=== PATIENT | male | born 1960 | race Caucasian/White ===

== ENCOUNTER 2023-07-10 08:04 | Inpatient (IN) ==
--- NOTE | 2023-06-07 13:06 | PAT Medication Instructions ---
Medication Instructions Date of Service June 07, 2023 Home Medications Ultrabeet 1 dose PO QAM ascorbic acid (vitamin C) 500 mg tablet (Vitamin C) 500 mg PO BID calcium carbonate 600 mg-vitamin D3 10 mcg (400 unit) tablet (Calcium 600 + D(3)) 2 tab PO QAM cyanocobalamin (vitamin B-12) 1,000 mcg/mL injection kit 1,000 mcg subcut MONTHLY ferrous sulfate 325 mg (65 mg iron) tablet (Iron (ferrous sulfate)) 325 mg PO BID gabapentin 600 mg tablet 1,200 mg PO TID morphine 60 mg tablet,extended release 60 mg PO Q12H multivitamin 1 tab PO QAM olopatadine 0.2 % eye drops 1 drp ophthalmic (eye) DAILY PRN omeprazole 20 mg capsule,delayed release 20 mg PO BID oxycodone 15 mg tablet 15 mg PO Q4H PRN prazosin 2 mg capsule 2 mg PO TID temazepam 15 mg capsule 15 mg PO HS venlafaxine 37.5 mg tablet 37.5 mg PO QAM vitamin B complex 1 tab PO QAM Continue as directed olopatadine 0.2 % eye drops 1 drp ophthalmic (eye) DAILY PRN(if needed) STOP taking 2 weeks before surgery (or as soon as possible if surgery is within 2 weeks) Ultrabeet 1 dose PO QAM DO NOT take the morning of surgery ascorbic acid (vitamin C) 500 mg tablet (Vitamin C) 500 mg PO BID calcium carbonate 600 mg-vitamin D3 10 mcg (400 unit) tablet (Calcium 600 + D(3)) 2 tab PO QAM cyanocobalamin (vitamin B-12) 1,000 mcg/mL injection kit 1,000 mcg subcut MONTHLY ferrous sulfate 325 mg (65 mg iron) tablet (Iron (ferrous sulfate)) 325 mg PO BID multivitamin 1 tab PO QAM vitamin B complex 1 tab PO QAM Take morning of surgery With a small sip of water, OTHERWISE NOTHING TO EAT OR DRINK AFTER MIDNIGHT: gabapentin 600 mg tablet 1,200 mg PO TID morphine 60 mg tablet,extended release 60 mg PO Q12H omeprazole 20 mg capsule,delayed release 20 mg PO BID oxycodone 15 mg tablet 15 mg PO Q4H PRN prazosin 2 mg capsule 2 mg PO TID venlafaxine 37.5 mg tablet 37.5 mg PO QAM Take evening before surgery ascorbic acid (vitamin C) 500 mg tablet (Vitamin C) 500 mg PO BID ferrous sulfate 325 mg (65 mg iron) tablet (Iron (ferrous sulfate)) 325 mg PO BID gabapentin 600 mg tablet 1,200 mg PO TID morphine 60 mg tablet,extended release 60 mg PO Q12H omeprazole 20 mg capsule,delayed release 20 mg PO BID oxycodone 15 mg tablet 15 mg PO Q4H PRN(if needed) prazosin 2 mg capsule 2 mg PO TID temazepam 15 mg capsule 15 mg PO HS Other Notes If you have any questions please call us at [phone] or [phone] or [phone] or [phone]
--- NOTE | 2023-06-12 11:14 | Anesthesiology Consultation ---
Date of Service June 12, 2023 Assessment & Plan (1) Encounter for pre-operative examination: Infectious disease screening: Per assessment on 06/12/23: No known infectious disease contacts or current infectious disease symptoms. No noted Covid positive test result in past 90 days. Chart Review Chart Review: Acceptable Risk for Surgery and Patient seen in Pre Admission Testing Teaching & Discussion Pre-Anesthesia Teaching/Discussion Notes: Instructed NPO after midnight before surgery,except medications with 15 cc of water. Medication instructions provided according to the PAT guidelines. History Surgery Operation Date: 07/10/23 10:05 Proposed Procedures p Removal Hardware L3-L5, Decompression L1-L3 and L5-S1, Fusion T12-S1 Spinal Cord Monitoring - Benito Guerrero, Height/Weight Height: 5 ft 8 in Weight: 77.8 kg Allergies Allergy/AdvReac Type Severity Reaction Status Date / Time No Known Allergies Allergy Mild NONE Verified 06/07/23 11:17 Medications Home Medications Medication Instructions Recorded Confirmed Last Taken Ultrabeet 1 dose PO QAM 06/07/23 06/07/23 Unknown ascorbic acid (vitamin C) 500 mg 500 mg PO BID 06/07/23 06/07/23 Unknown tablet (Vitamin C) calcium carbonate 600 mg-vitamin 2 tab PO QAM 06/07/23 06/07/23 Unknown D3 10 mcg (400 unit) tablet (Calcium 600 + D(3)) cyanocobalamin (vitamin B-12) 1,000 mcg subcut MONTHLY 06/07/23 06/07/23 Unknown 1,000 mcg/mL injection kit ferrous sulfate 325 mg (65 mg 325 mg PO BID 06/07/23 06/07/23 Unknown iron) tablet (Iron (ferrous sulfate)) gabapentin 600 mg tablet 1,200 mg PO TID 06/07/23 06/07/23 Unknown morphine 60 mg tablet,extended 60 mg PO Q12H 06/07/23 06/07/23 Unknown release multivitamin 1 tab PO QAM 06/07/23 06/07/23 Unknown olopatadine 0.2 % eye drops 1 drp ophthalmic (eye) DAILY PRN 06/07/23 06/07/23 Unknown Dry Eye(S) omeprazole 20 mg capsule,delayed 20 mg PO BID 06/07/23 06/07/23 Unknown release oxycodone 15 mg tablet 15 mg PO Q4H PRN Pain 06/07/23 06/07/23 Unknown prazosin 2 mg capsule 2 mg PO TID 06/07/23 06/07/23 Unknown temazepam 15 mg capsule 15 mg PO HS 06/07/23 06/07/23 Unknown venlafaxine 37.5 mg tablet 37.5 mg PO QAM 06/07/23 06/07/23 Unknown vitamin B complex 1 tab PO QAM 06/07/23 06/07/23 Unknown Past Medical History Medical History Chronic back pain GERD (gastroesophageal reflux disease) Depression Hearing deficit History of kidney stones Exercise / Class Metabolic Activity II 4-5 Yardwork/Stairs/Walk up hill Past Family History Family History Other Family history not known due to adoption Past Surgical History Surgical History History of ERCP History of vasectomy History of lumbar spinal fusion x2 History of carpal tunnel release of both wrists History of repair of left rotator cuff x2 History of repair of right rotator cuff x2 History of fusion of cervical spine "normal ROM" History of cholecystectomy History of gastric bypass History of tooth extraction History of tonsillectomy and adenoidectomy Past Anesthesia History No Hx of Anesthesia Complications and No Family Hx of Anesthesia Complications History of PONV No Hx of PONV and No Hx of Motion Sickness Social History Smoking Status: Never smoker tobacco type: smokeless tobacco Do You Dip or Chew Tobacco: Yes (chews (advised on policy)) Hx Alcohol Use: No 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 Physical Exam Vital Signs VITALS BP 99/60 P 55 TEMP 98%RA SP02 98.4 RESP 18 PHYSICAL Full cervical extension range of motion. Full TMJ range of motion. TMD 3 finger breaths Mallampati Score 2 Dentition: several missing (sides/molars) Lungs: clear throughout to auscultation Cardiac: regular rate and rhythm, no murmurs noted Spine: normal Carotid arteries: negative bruit Extremities: no LE edema Short wlash Lab Results Anesthesia Preop Results Results Anesthesia Widget: WBC 6.47 K/ul (4.8-10.8) 06/12/23 Hgb 13.3 g/dl (14.0-18.0) L 06/12/23 Hct 40.3 % (42.0-52.0) L 06/12/23 Plt 148 K/uL (130-400) 06/12/23 Na 140 mmol/L (136-145) 06/12/23 K 4.9 mmol/L (3.5-5.1) 06/12/23 Cl 105 mmol/L (98-107) 06/12/23 CO2 30 mmol/L (21-32) 06/12/23 BUN 15 mg/dl (6-23) 06/12/23 Creat 0.72 mg/dl (0.6-1.4) 06/12/23 Glucose Level 95 mg/dl (70-99(Fasting)) 06/12/23 PT 11.0 Seconds (9.0-12.0) 06/12/23 PTT 26.9 Seconds (21.0-31.0) 06/12/23 INR 1.0 (0.9-1.1) 06/12/23 Urine Color Dark Yellow 06/12/23 Urine Appearance Clear (Clear) 06/12/23 Urine pH 6.5 (4.5-7.5) 06/12/23 Urine Specific [place] 1.018 (1.000-1.030) 06/12/23 Urine Protein Negative (Negative) 06/12/23 Urine Glucose (UA) Negative (Negative) 06/12/23 Urine Ketones Negative (Negative) 06/12/23 Urine Blood Negative (Negative) 06/12/23 Urine Nitrite Negative (Negative) 06/12/23 Urine Bilirubin Negative (Negative) 06/12/23 Urine Urobilinogen Negative (Negative) 06/12/23 Urine Leukocyte Esterase Negative (Negative) 06/12/23 Blood Type A Positive 06/12/23 Antibody Screen NEGATIVE 06/12/23 Testing Electrocardiogram Date: 06/12/23 SB at 49bpm. "Otherwise normal ECG" No significant change compared to 06/01/2015 per visual designer comparison. Chest X-Ray Date: 06/12/23 FINDINGS: Cardiomediastinal and hilar silhouettes are within normal limits. No pneumothorax, pleural effusion or airspace consolidation. Hyperinflation with diaphragmatic flattening. Cervical spinal fusion hardware. Cholecystectomy. Partially imaged lumbar spinal fusion hardware. Degenerative changes of the shoulders and spine. IMPRESSION: Hyperinflation without acute process of the chest.
[~2023-07-10 08:04] MED LIST: ACETAMINOPHEN 500 MG TAB PO SCH; CeleBREX 200 MG CAP PO SCH; DexMEDEtomidine HCL IV 100 MCG/ML VIAL IV ONE; GABAPENTIN 600 MG DOSE PO SCH; KETAMINE HCL 10MG/ML SYR ONE; LR 15ML/HR IV SCH; LR 60ML/HR IV SCH; PROPOFOL IV EMULSION 10 MG/ML 100 ML VIAL IV ONE; REMIFENTANIL HCL 1 MG VIAL IV ONE
[2023-07-10] MEDS ORDERED: ROCURONIUM BROMIDE 10 MG/ML 5 ML VIAL IV ONE ×2 (09:41→11:47)
[2023-07-10] MEDS ORDERED: MIDAZOLAM HCL 1 MG/ML 2ML VIAL ONE (09:41)
[2023-07-10] MEDS ORDERED: ONDANSETRON INJ 2 MG/ML 2 ML VIAL ONE (09:41)
[2023-07-10] MEDS ORDERED: DEXAMETHASONE SOD INJ 4 MG/ML VIAL ONE (09:41)
[2023-07-10] MEDS ORDERED: LIDOCAINE 2% 2 ML VIAL/AMP(20MG/ML) INFIL ONE (09:41)
[2023-07-10] MEDS ORDERED: PROPOFOL IV EMULSION 10 MG/ML 20 ML VIAL IV ONE (09:41)
[2023-07-10] MEDS ORDERED: fentaNYL citrate PF 100 MCG/2 ML VIAL ONE (09:41)
[2023-07-10] MEDS ORDERED: ePHEDrine sulfate 50 MG/ML AMP IV PRN (09:47)
[2023-07-10] MEDS ORDERED: ATROPINE SULFATE 0.1 MG/ML 10ML SYR IV PRN (09:47)
[2023-07-10] MEDS ORDERED: ONDANSETRON INJ 2 MG/ML 2 ML VIAL IV PRN ×2 (09:47→15:21)
[2023-07-10] MEDS ORDERED: HYDROmorphone INJ 2 MG/ML SYR/VIAL IV PRN (09:47)
[2023-07-10] MEDS ORDERED: SUGAMMADEX SODIUM 200 MG/2 ML VIAL IV ONE (10:14)
--- NOTE | 2023-07-10 10:31 | History & Physical Bridge Note ---
Date of Service July 10, 2023 History & Physical Bridge Note I have examined the patient, reviewed the History & Physical and in the interval since the performance of the History & Physical I have noted the following changes of clinical significance: no changes noted
--- NOTE | 2023-07-10 10:32 | History & Physical Report ---
Date of Service July 10, 2023 Assessment & Plan (1) Lumbar stenosis with neurogenic claudication: Plan: Removal of hardware at L3-L5, L2-L3 and L5-S1 decompression, T12-S1 fusion History of Present Illness Chief Complaint: Back and bilateral leg pain Primary Care Provider: Mango Rahman This is a 63-year-old male well-known to me the presents with chronic persistent back and leg pain after failing course of nonoperative care is here for surgical invention. Allergies Allergy/AdvReac Type Severity Reaction Status Date / Time No Known Allergies Allergy Mild NONE Verified 07/10/23 08:47 Home Medications Medication Instructions Recorded Confirmed Type Ultrabeet 1 dose PO QAM 06/07/23 07/10/23 History ascorbic acid (vitamin C) 500 mg 500 mg PO BID 06/07/23 07/10/23 History tablet (Vitamin C) calcium carbonate 600 mg-vitamin 2 tab PO QAM 06/07/23 07/10/23 History D3 10 mcg (400 unit) tablet (Calcium 600 + D(3)) cyanocobalamin (vitamin B-12) 1,000 mcg subcut MONTHLY 06/07/23 07/10/23 History 1,000 mcg/mL injection kit ferrous sulfate 325 mg (65 mg 325 mg PO BID 06/07/23 07/10/23 History iron) tablet (Iron (ferrous sulfate)) gabapentin 600 mg tablet 1,200 mg PO TID 06/07/23 07/10/23 History morphine 60 mg tablet,extended 60 mg PO Q12H 06/07/23 07/10/23 History release multivitamin 1 tab PO QAM 06/07/23 07/10/23 History olopatadine 0.2 % eye drops 1 drp ophthalmic (eye) DAILY PRN 06/07/23 07/10/23 History Dry Eye(S) omeprazole 20 mg capsule,delayed 20 mg PO BID 06/07/23 07/10/23 History release oxycodone 15 mg tablet 15 mg PO Q4H PRN Pain 06/07/23 07/10/23 History prazosin 2 mg capsule 2 mg PO TID 06/07/23 07/10/23 History temazepam 15 mg capsule 15 mg PO HS 06/07/23 07/10/23 History venlafaxine 37.5 mg tablet 37.5 mg PO QAM 06/07/23 07/10/23 History vitamin B complex 1 tab PO QAM 06/07/23 07/10/23 History Past Med/Surg History Medical History Chronic back pain GERD (gastroesophageal reflux disease) Depression Hearing deficit History of kidney stones Surgical History History of ERCP History of vasectomy History of lumbar spinal fusion x2 History of carpal tunnel release of both wrists History of repair of left rotator cuff x2 History of repair of right rotator cuff x2 History of fusion of cervical spine "normal ROM" History of cholecystectomy History of gastric bypass History of tooth extraction History of tonsillectomy and adenoidectomy Family History Other Family history not known due to adoption Social History Smoking Status: Never smoker Tobacco Type: Smokeless Tobacco (Dip or Chew) Second Hand Exposure: Yes (work environment); Do You Dip or Chew Tobacco: Yes (chews (advised on policy)); Tobacco Cessation Education Requested by Patient: No Hx Alcohol Use: No 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) Preferred Language: Greek Communication Ability: Effective Baseball Coach Required: No Beliefs That Will Affect Care: None Current Living Situation: Spouse and Family Current Living Situation Comment: Lives with and daughter and son Other Information That Helps Us Care for You: No Feels Safe at Home: Yes Safety Concerns: Feels Safe At This Time Assistive Devices: Contacts and Glasses Physical Exam Physical Exam: Patient is alert and oriented Heart regular rhythm Lungs clear Results & Data Results & Data Vital Signs (Past 12 Hours) Vital Signs Temp Pulse Resp BP Pulse Ox O2 Del Method 07/10/23 08:45 36.6 C 53 L 20 116/67 94 Room Air
[2023-07-10] MEDS ORDERED: ceFAZolin 330 MG/ML 1 GM VIAL ONE (10:50)
[2023-07-10] MEDS ORDERED: BUPIVACAINE/EPINEPHRINE 0.25% 1:200,000 30 ML VIAL ONE (10:50)
[2023-07-10] MEDS ORDERED: FLOSEAL HEMOSTATIC MATRIX 10ML TOP ONE (11:45)
[2023-07-10] MEDS ORDERED: ePHEDrine sulfate 50 MG/ML AMP ONE (11:47)
[2023-07-10] MEDS ORDERED: NEOSTIGMINE METHYLSULFATE 1 MG/ML 10ML VIAL ONE (13:55)
[2023-07-10] MEDS ORDERED: GLYCOPYRROLATE 0.2 MG/ML VIAL ONE ×2 (13:55→13:57)
[2023-07-10] MEDS ORDERED: HYDROmorphone INJ 2 MG/ML SYR/VIAL ONE (14:01)
--- NOTE | 2023-07-10 14:06 | Operative Report ---
Post Operative Report Pre & Post Diagnosis Operation Date: 07/10/23 10:05 Pre-Op Diagnosis: Spinal Stenosis Lumbar Region with Radiculopathy Post-Op Diagnosis: Spinal Stenosis Lumbar Region with Radiculopathy I identified the patient and participated in the time-out.: Yes Procedure Operation Date: 07/10/23 10:05 Actual Procedures #1 removal of posterior instrumentation L3-L4. #2 exploration of fusion L3-L4. #3 lumbar decompression bilaterally facetectomies and foraminotomies L1-L2 L2-L3 and L5-S1. #4 posterior spinal fusion T12-L3 and L5-S1. #5 posterior instrumentation T12-S1. #6 interbody fusion L2-L3 L5-S1 #7 placement of 10 x 26 mm Spira cage at L2-L3 and 14 x 26 mm Spira cage at L5-S1 x2. #8 placement locally harvested morselized autograft and posterior gutters. #9 placement I factor interbody space and infuse collagen sponge, and master graft in the posterior lateral gutters. Surgeon Benito Guerrero, At Home Independent Call [facility] Agent Carol Patino Estimated Blood Loss 300 Findings Consistent with Post-Op Diagnosis Specimens None Indications This is a 63-year-old male well-known to me presents above-mentioned diagnosis after failing course of nonoperative care is here for surgical invention. Description of Procedure Patient was met with identified informed consent obtained. Patient was then taken to the operative suite underwent patient placed in a prone position on the [facility] top Joo frame. All bony prominences well-padded eyes inspected to ensure no external pressure placed upon the. This point the thoracolumbar spine was prepped and draped in a sterile fashion. Sharp dissection with the assistance of Bovie cautery to form down to and exposing the lamina transverse processes of T12 L1-L2 instrumentation L3-L4 and the transverse processes of L5 and the sacral ala bilaterally. I then proceeded move the hardware bilaterally explore the fusion mass noting it being mature and intact. And then performed a complete laminectomy of L5 including bilaterally facetectomies and foraminotomies addressing severe spinal stenosis. This was followed by complete laminectomy of L2 partial laminectomy of L1 including bilateral medial facetectomies and foraminotomies addressing severe spinal stenosis. Pedicle screws then placed in T12-L1 L2-L3-L4 and S1 levels bilaterally with assistance of fluoroscopy and the proper sized albert contoured and placed. By way the transforaminal approach on the left discectomy of L5-S1 was performed endplates curetted to subcortical bleeding bone and a 14 x 26 mm Spira cage with I factor tapped in position. Then proceeded to the right transforaminal region at L5-S1. Completed the discectomy curetted the endplates to subcortical bleeding bone and placed a second 14 x 26 mm Spira cage with I factor into position. Then proceeded L2-L3 by way the transforaminal approach on the left complete discectomy was performed endplates guided to subcortical mean bone and a 10 x 26 mm Spira cage with I factor tapped in position. Rods were then locked into final position bilaterally. The transverse processes of T12 L1-L2-L3 L5 and the sacral ala burred to subcortically bone. Infuse bone sponge, mass graft local autograft was placed in the posterior gutters. 15 round SAMINA drain inserted. The incision was then closed with 1 Vicryl fascia 2-0 Vicryl subcutaneously and 4 Monocryl for final skin closure. Steri-Strips sterile dressing placed. Patient waken taken to PACU in stable condition. Please note spinal cord monitoring was utilized at the procedure no changes noted. Lastly Carol Patino was present at the entire surgery involved the patient positioning complex portions of the surgery and possible closure. I attest to the content of the Intraoperative Record and any orders documented therein. Any exceptions are noted below.
--- NOTE | 2023-07-10 14:35 | Fluoroscopy Report ---
FL lumbar spine 2-3V CLINICAL HISTORY: HW REMOVAL L3-L5 DECOMPRESSION L1-L3 L5-S1 FUSION T12-S1 COMPARISON STUDY: None. FLUOROSCOPY TIME: 48 seconds FLUOROSCOPY IMAGES: 4 Ka,r: 30.3 mGy FINDINGS: Posterior decompression and fusion from T12 through S1 with pedicle screws and rods. Hardwa re appears intact. Disc spacers are in place. IMPRESSION: Fluoroscopic assistance as above ACT 112: Negative or not required by law. Electronically signed by: Rogerio Yates M.D. 07/10/2023 2:34 PM
[2023-07-10] MEDS: fentaNYL citrate PF 100 MCG/2 ML VIAL IV PRN ×2 (14:38→14:43)
[2023-07-10] MEDS ORDERED: HYDROmorphone INJ 1 MG/ML SYRINGE IV PRN (15:21)
[2023-07-10] MEDS ORDERED: ACETAMINOPHEN 500 MG TAB PO PRN (15:21)
[2023-07-10] MEDS ORDERED: bisacodyL 10 MG SUPP PR PRN (15:21)
[2023-07-10] MEDS ORDERED: ACETAMINOPHEN 1,000 MG/100 ML VIAL IV PRN (15:21)
[2023-07-10] MEDS ORDERED: NALOXONE HCL 0.4 MG/1 ML VIAL/CARP IV PRN (15:21)
[2023-07-10] MEDS ORDERED: ONDANSETRON 4 MG OD TAB PO PRN (15:21)
[2023-07-10] MEDS ORDERED: DO NOT ADMINISTER PNEUMOCOCCAL VACCINE PRN (15:21)
[2023-07-10] MEDS ORDERED: FAMOTIDINE 20 MG TAB PO PRN (15:21)
[2023-07-10] MEDS ORDERED: LORazepam 0.5 MG in SYRINGE 0.25 ML IV PRN (15:21)
[2023-07-10] MEDS ORDERED: METOCLOPRAMIDE HCL INJ 5 MG/ML 2 ML VIAL IV PRN (15:21)
[2023-07-10] MEDS ORDERED: OLOPATADINE 0.2% OP PRN (15:21)
[2023-07-10] MEDS ORDERED: diphenhydrAMINE Capsule 25 MG CAP PO PRN (15:21)
[2023-07-10] MEDS ORDERED: MAGNESIUM HYDROXIDE SUSP 30 ML UDC PO PRN (15:21)
[2023-07-10] MEDS ORDERED: hydrOXYzine HCl 25 MG TAB PO PRN (15:21)
[2023-07-10] MEDS ORDERED: ALUMINUM/MAGNESIUM SUSP 30 ML UDC PO PRN (15:21)
[2023-07-10] MEDS ORDERED: HYDROmorphone INJ 0.5 MG/0.5 ML SYR IV PRN (15:21)
[2023-07-10] MEDS ORDERED: PROMETHAZINE HCL 12.5 MG in SODIUM CHLORIDE 0.9% 50 ML IV PRN (15:21)
[2023-07-10] MEDS ORDERED: LORazepam 0.5 MG TAB PO PRN (15:21)
[2023-07-10] MEDS ORDERED: DO NOT ADMINISTER FLU VACCINE PRN (15:21)
[2023-07-10] MEDS ORDERED: SOD PHOSPHATE/SOD BIPHOSPHATE ENEMA 132 ML BTL PR PRN (15:21)
--- NOTE | 2023-07-10 15:43 | Anesthesiology Progress Note ---
Date of Service July 10, 2023 Anesthesia Post Procedure Vital Signs Vital Signs: Temp Pulse Pulse Resp BP BP Pulse Ox 07/10/23 15:20 36.4 C L 54 L 16 101/60 93 07/10/23 15:15 61 20 101/56 L 94 07/10/23 15:05 36.6 C 60 12 104/63 94 07/10/23 14:55 63 12 110/63 95 07/10/23 14:45 62 12 116/69 98 07/10/23 14:35 72 16 103/66 99 07/10/23 14:27 36.1 C L 76 14 120/75 98 07/10/23 08:45 36.6 C 53 L 20 116/67 94 O2 Del Method O2 Flow Rate 07/10/23 15:20 Room Air 07/10/23 15:15 Room Air 07/10/23 15:05 Room Air 07/10/23 14:55 Room Air 07/10/23 14:45 Oxymask 4 07/10/23 14:35 Oxymask 6 07/10/23 14:27 Oxymask 6 07/10/23 08:45 Room Air Pain Intensity Bilateral Back: Pain Intensity: 8 Transfer of Care Handoff Completed per policy Notes Mental Status: alert / awake / arousable Patient Amnestic to Procedure: Yes Nausea / Vomiting: adequately controlled Pain: adequately controlled Airway Patency, RR, SpO2: stable & adequate BP & HR: stable & adequate Hydration State: stable & adequate Anesthetic Complications: no major complications apparent
[2023-07-10] MEDS: LACTATED RINGER'S 1,000 ML IV SCH (15:45)
[2023-07-10] MEDS: MoRPHine SULFATE CR 60 MG TABCR PO SCH (16:23)
[2023-07-10] MEDS: KETOROLAC 30 MG/ML VIAL IV SCH ×2 (16:24→20:25)
[2023-07-10] MEDS: ASCORBIC ACID 500 MG TAB PO SCH (16:24)
[2023-07-10] MEDS: ceFAZolin 2000MG 2,000 MG/15 ML SYR IV SCH (20:25)
[2023-07-10] MEDS: PRAZOSIN HCL 1 MG CAP PO SCH (20:25)
[2023-07-10] MEDS: FERROUS SULFATE 325 MG TAB PO SCH (20:25)
[2023-07-10] MEDS: PANTOprazole 40 MG TAB PO SCH (20:25)
[2023-07-10] MEDS: GABAPENTIN 600 MG TAB PO SCH (20:25)
[2023-07-10] MEDS: DOCUSATE SODIUM/SENNA 50/8.6MG TAB PO SCH (20:25)
[2023-07-10] MEDS: TEMAZEPAM 15 MG CAPSULE PO SCH (20:25)
[2023-07-10] MEDS: oxyCODONE HCL IR 5 MG TAB (IMMEDIATE RELEASE) PO PRN (22:26)
[2023-07-11] MEDS: LACTATED RINGER'S 1,000 ML IV SCH (01:13)
[2023-07-11] MEDS: MoRPHine SULFATE CR 60 MG TABCR PO SCH ×2 (02:54→15:29)
[2023-07-11] MEDS: KETOROLAC 30 MG/ML VIAL IV SCH ×2 (02:54→09:34)
[2023-07-11] MEDS: ceFAZolin 2000MG 2,000 MG/15 ML SYR IV SCH (03:49)
[2023-07-11] MEDS: oxyCODONE HCL IR 5 MG TAB (IMMEDIATE RELEASE) PO PRN ×5 (05:54→23:49)
[2023-07-11] MEDS: POLYETHYLENE (MIRALAX) 17 GM PACK PO SCH ×4 (05:55→23:50)
[2023-07-11 06:21] LABS: Basophils # (auto) 0.03 K/uL (0.00-0.20); Basophils % (auto) 0.2 %; Eosinophils % (auto) 0.8 %; Hematocrit (blood only) 31.2 % (42.0-52.0); Hemoglobin 10.2 g/dl (14.0-18.0); Immature Granulocytes # (auto) 0.06 K/uL (0.01-0.20); Immature Granulocytes % (auto) 0.5 %; Lymphocytes # (auto) 1.67 K/uL (1.20-3.40); Lymphocytes % (auto) 13.3 %; Mean Corpuscular Hemoglobin 30.7 pg (25.0-34.0); Mean Corpuscular Hgb Conc 32.7 g/dL (32.0-36.0); Mean Platelet Volume 11.2 fL (9.4-12.4); Monocytes # (auto) 1.01 K/uL (0.11-0.59); Monocytes % (auto) 8.1 %; Neutrophils # (auto) 9.66 K/uL (1.40-6.50); Neutrophils % (auto) 77.1 %; Platelet Count 117 K/uL (130-400); RDW Coefficient of Variation 12.5 % (11.5-14.5); RDW Standard Deviation 43.4 fL (36.4-46.3); Red Blood Count 3.32 M/uL (4.70-6.10); White Blood Count 12.53 K/ul (4.8-10.8)
[2023-07-11 06:35] LABS: BUN Creatinine Ratio 23.3 (10-20); Calcium 8.1 mg/dl (8.6-10.3); Creatinine Clr Calc Pharmacy 101.5 ml/min; Est GFR (African American) 115.2 ml/min; Est GFR (Non-African American) 99.4 ml/min; Potassium 4.2 mmol/L (3.5-5.1)
[2023-07-11] MEDS: PRAZOSIN HCL 1 MG CAP PO SCH (08:06)
[2023-07-11] MEDS: VITAMIN B COMPLEX TAB PO SCH (08:08)
[2023-07-11] MEDS: CALCIUM 600MG + VIT D 400 IU TAB PO SCH (08:09)
[2023-07-11] MEDS: GABAPENTIN 600 MG TAB PO SCH ×3 (08:09→20:18)
[2023-07-11] MEDS: PANTOprazole 40 MG TAB PO SCH ×2 (08:09→20:18)
[2023-07-11] MEDS: VENLAFAXINE HCL 37.5 MG TAB PO SCH (08:09)
[2023-07-11] MEDS: FERROUS SULFATE 325 MG TAB PO SCH ×2 (08:09→20:18)
[2023-07-11] MEDS: ASCORBIC ACID 500 MG TAB PO SCH ×2 (08:09→18:26)
[2023-07-11] MEDS: dexAMETHasone 6 MG in SYRINGE 0 ML IV SCH (08:10)
--- NOTE | 2023-07-11 08:42 | Orthopedic Progress Note ---
Date of Service July 11, 2023 Assessment & Plan (1) Lumbar stenosis with neurogenic claudication: Plan: At this point we will initiate physical therapy monitor history preoperatively discharge in next few days. Admission and Anticipated Discharge Date Admission Date: July 10, 2023 Subjective Back pain controlled leg pain improved Physical Exam Physical Exam: Patient in bed appears comfortable. Discussed with resting. Results & Data Vital Signs (Past 12 Hours) Vital Signs Temp Pulse Resp BP Pulse Ox O2 Del Method 07/11/23 07:37 36 C L 62 14 97/60 L 96 Room Air 07/11/23 02:52 36.5 C 63 18 110/62 94 Room Air 07/10/23 21:30 36.7 C 59 L 18 96/59 L 95 Room Air Queries Orthopedic Spine Acute Posthemorrhagic Anemia: Yes
--- NOTE | 2023-07-11 11:16 | Hospitalist Consultation ---
Date of Consultation July 11, 2023 Assessment & Plan (1) Lumbar stenosis with neurogenic claudication: -S/P decompression L1-L3 and L5-2; Fusion T12-S1 with Dr. Guerrero on 07/11 -Pain control, bowel regiment, and DVT proh per surgery -Receiving IV Decadron x 3 days -SAMINA Drain in place -PT/OT (2) Hypertension: -Has been normotensive to hypotensive since admission -Will hold prazosin at this time and continue to monitor (3) Fatigue: -Discussed with patient more likely from 1200 gabapentin TID than his prazosin TID. -Chronic and can be further worked up in the outpatient setting, but will check a few labs with AM draw - Vit D, TSH and iron studies ordered (4) Anemia: -Suspect chronic, worsened by acute blood loss anemia from surgery -Patient takes BID ferrous sulfate -Iron studies as above, monitor hgb Plan Dispo: medically stable Continued inpatient stay, per patient Dr. Guerrero prediciting discharge to home on Saturday Thank you for allowing us to participate in the care of this patient, please reach out with any questions or concerns Supervising Physician Co-Signing Physician Notes Attending Attestation - Chart reviewed, consultation care plan d/w STEFAN Fontenot. I agree w/ the martinez components of her documentation. 63yo male who underwent lumbar decompression-fusion procedure with Dr Guerrero on 07/10/23. Agree with labs for fatigue & anemia as outlined above in Po's note. Thank you for the consult; we will follow with you. Wilmer Camp MD History of Present Illness Reason for Consultation: Medical management Attending Physician: Benito Guerrero DO History of Present Illness 1055 - Patient seen sitting up in the chair. Reports pain is well controlled, good appetite. No bowel movement yet. Bentley removed about a half hour ago and has not had to void yet. Prazosin was held this morning due to hypotension, patient denies lightheadedness or dizziness, but states that he has had that before with different BP medications. has been on the prazosin for over a year for HTN. Does report that he has been feeling tired all the time, for over a year. Has not discussed this with his PCP. Allergies Allergy/AdvReac Type Severity Reaction Status Date / Time No Known Allergies Allergy Mild NONE Verified 07/10/23 08:47 Home Medications Medication Instructions Recorded Confirmed Type Ultrabeet 1 dose PO QAM 06/07/23 07/10/23 History ascorbic acid (vitamin C) 500 mg 500 mg PO BID 06/07/23 07/10/23 History tablet (Vitamin C) calcium carbonate 600 mg-vitamin 2 tab PO QAM 06/07/23 07/10/23 History D3 10 mcg (400 unit) tablet (Calcium 600 + D(3)) cyanocobalamin (vitamin B-12) 1,000 mcg subcut MONTHLY 06/07/23 07/10/23 History 1,000 mcg/mL injection kit ferrous sulfate 325 mg (65 mg 325 mg PO BID 06/07/23 07/10/23 History iron) tablet (Iron (ferrous sulfate)) gabapentin 600 mg tablet 1,200 mg PO TID 06/07/23 07/10/23 History morphine 60 mg tablet,extended 60 mg PO Q12H 06/07/23 07/10/23 History release multivitamin 1 tab PO QAM 06/07/23 07/10/23 History olopatadine 0.2 % eye drops 1 drp ophthalmic (eye) DAILY PRN 06/07/23 07/10/23 History Dry Eye(S) omeprazole 20 mg capsule,delayed 20 mg PO BID 06/07/23 07/10/23 History release oxycodone 15 mg tablet 15 mg PO Q4H PRN Pain 06/07/23 07/10/23 History prazosin 2 mg capsule 2 mg PO TID 06/07/23 07/10/23 History temazepam 15 mg capsule 15 mg PO HS 06/07/23 07/10/23 History venlafaxine 37.5 mg tablet 37.5 mg PO QAM 06/07/23 07/10/23 History vitamin B complex 1 tab PO QAM 06/07/23 07/10/23 History Patient History Medical History Chronic back pain GERD (gastroesophageal reflux disease) Depression Hearing deficit History of kidney stones Surgical History History of ERCP History of vasectomy History of lumbar spinal fusion x2 History of carpal tunnel release of both wrists History of repair of left rotator cuff x2 History of repair of right rotator cuff x2 History of fusion of cervical spine "normal ROM" History of cholecystectomy History of gastric bypass History of tooth extraction History of tonsillectomy and adenoidectomy Family History Other Family history not known due to adoption Social History Smoking Status: Never smoker Tobacco Type: Smokeless Tobacco (Dip or Chew) Second Hand Exposure: Yes (work environment); Do You Dip or Chew Tobacco: Yes (chews (advised on policy)); Tobacco Cessation Education Requested by Patient: No Hx Alcohol Use: No 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) Preferred Language: Azerbaijani Communication Ability: Effective Jack Spooler Tender Required: No Beliefs That Will Affect Care: None Current Living Situation: Spouse and Family Current Living Situation Comment: Lives with and daughter and son Other Information That Helps Us Care for You: No Feels Safe at Home: Yes Safety Concerns: Feels Safe At This Time Assistive Devices: Walker Review of Systems Review of Systems: All systems reviewed & are unremarkable except as noted in Subjective Physical Exam Physical Exam: General: WN/WD, NAD, VS as above Resp: normal respiratory effort, lungs clear to auscultation CV: RRR, no murmur, no edema Abd: non tender, no hepatosplenomegaly Back: abd dressing in place - C/d/i Extremities: Moves all extremities, no edema, erica hose in place Neuro: A&O x3, Skin: intact, no lesions noted Results & Data Results & Data Vital Signs (Past 12 Hours) Vital Signs Temp Pulse Resp BP Pulse Ox O2 Del Method 07/11/23 07:37 36 C L 62 14 97/60 L 96 Room Air 07/11/23 02:52 36.5 C 63 18 110/62 94 Room Air Laboratory Results CBC and CMP reviewed PG Care Time/CCT Total # of Minutes Spent Total Time Spent with Patient: Total time spent is greater than 50% in coordination of care (as documented) at patient's floor/unit and/or counseling patient: Coding Level of Care Code 56406 IN/OBS CONSULT LVL 3,45M Diagnoses Lumbar stenosis with neurogenic claudication M48.062 Hypertension I10 Fatigue R53.83 Anemia D64.9
[2023-07-11] MEDS: DOCUSATE SODIUM/SENNA 50/8.6MG TAB PO SCH (20:18)
[2023-07-11] MEDS: TEMAZEPAM 15 MG CAPSULE PO SCH (20:20)
[2023-07-12] MEDS: MoRPHine SULFATE CR 60 MG TABCR PO SCH ×2 (03:15→15:06)
[2023-07-12] MEDS: oxyCODONE HCL IR 5 MG TAB (IMMEDIATE RELEASE) PO PRN ×5 (04:46→21:40)
[2023-07-12] MEDS: POLYETHYLENE (MIRALAX) 17 GM PACK PO SCH ×4 (05:45→23:35)
[2023-07-12 06:27] LABS: Hematocrit (blood only) 30.1 % (42.0-52.0); Hemoglobin 10.1 g/dl (14.0-18.0); Mean Corpuscular Hemoglobin 31.8 pg (25.0-34.0); Mean Corpuscular Hgb Conc 33.6 g/dL (32.0-36.0); Mean Corpuscular Volume 94.7 fL (80.0-100.0); Mean Platelet Volume 11.2 fL (9.4-12.4); Platelet Count 111 K/uL (130-400); RDW Coefficient of Variation 12.6 % (11.5-14.5); RDW Standard Deviation 43.9 fL (36.4-46.3); Red Blood Count 3.18 M/uL (4.70-6.10); White Blood Count 11.21 K/ul (4.8-10.8)
[2023-07-12 07:00] LABS: Thyroid Stimulating Hormone 2.379 uIu/ml (0.300-4.500)
[2023-07-12 07:06] LABS: Ferritin 1036.2 ng/ml (8-388)
[2023-07-12] MEDS: dexAMETHasone 6 MG in SYRINGE 0 ML IV SCH (07:57)
--- NOTE | 2023-07-12 09:31 | Orthopedic Progress Note ---
Date of Service July 12, 2023 Assessment & Plan (1) Lumbar stenosis with neurogenic claudication: Plan: Norma is postoperative day 2 status post hard removal L3-4, multilevel decompression and instrumented fusion from T12-S1. Will work on pain control today. Continue with aggressive bowel regimen. DVT prophylaxis is in the form teds and SCDs. Continue with ambulation. Maintain SAMINA drain. Anticipate discharge home Saturday Admission and Anticipated Discharge Date Admission Date: July 10, 2023 Joy Victor is postoperative day 2 status post hard removal L3-4, decompression L1- 3, L5-S1 instrumented fusion from T12-S1. He has a bit more back pain today. States his lower extremities are numb. No radicular pain. SAMINA drain output last shift was 180 cc. Yesterday in physical therapy ambling 250 feet. H&H this morning are 10.1 and 30.1 respectively. He is passing flatus but no bowel movement. Review of Systems Review of Systems: All systems reviewed & are unremarkable except as noted in HPI & below Physical Exam Physical Exam: He is lying in bed uncomfortable Alert and oriented x 3 Lumbar dressing is clean dry intact with functioning SAMINA drain Strength is intact bilateral lower extremities KEITH hose intact bilaterally Calf soft nontender bilaterally Results & Data Vital Signs (Past 12 Hours) Vital Signs Temp Pulse Resp BP Pulse Ox O2 Del Method 07/12/23 07:55 36.7 C 58 L 20 99/66 L 95 Room Air Queries Orthopedic Spine Acute Posthemorrhagic Anemia: Yes
[2023-07-12] MEDS: VENLAFAXINE HCL 37.5 MG TAB PO SCH (09:39)
[2023-07-12] MEDS: VITAMIN B COMPLEX TAB PO SCH (09:39)
[2023-07-12] MEDS: GABAPENTIN 600 MG TAB PO SCH ×3 (09:39→21:42)
[2023-07-12] MEDS: PANTOprazole 40 MG TAB PO SCH ×2 (09:39→21:41)
[2023-07-12] MEDS: CALCIUM 600MG + VIT D 400 IU TAB PO SCH (09:39)
[2023-07-12] MEDS: ASCORBIC ACID 500 MG TAB PO SCH ×2 (09:40→17:24)
--- NOTE | 2023-07-12 13:09 | Hospitalist Consultation ---
Date of Consultation July 12, 2023 Assessment & Plan (1) Lumbar stenosis with neurogenic claudication: -S/P decompression L1-L3 and L5-2; Fusion T12-S1 with Dr. Guerrero on 07/11 -Pain control, bowel regiment, and DVT proh per surgery -Receiving IV Decadron x 3 days -SAMINA Drain in place -PT/OT (2) Hypertension: -Has been normotensive to hypotensive since admission -continue to hold prazosin a (3) Fatigue: -Discussed with patient more likely from 1200 gabapentin TID than his prazosin TID. -Chronic and can be further worked up in the outpatient setting - Vit D and TSH WNL (4) Anemia: -Suspect chronic, worsened by acute blood loss anemia from surgery -Iron studies showing significant iron stores (ferritin 1036), suspect anemia of chronic disease. -Stop iron supplement. Can have further workup with PCP. Patient aware. Plan Dispo: medically stable Continued inpatient stay, per patient Dr. Guerrero predicating discharge to home on Saturday Thank you for allowing us to participate in the care of this patient, please reach out with any questions or concerns Supervising Physician Co-Signing Physician Notes Attending Attestation - Chart reviewed, care plan d/w STEFAN Fontenot. I agree w/ the martinez components of her documentation. Wilmer Camp MD History of Present Illness Attending Physician: Benito Guerrero, DO History of Present Illness Patient seen sitting up in the chair. Was just up to the bathroom. Pain increasing and has not had a bowel movement yet, but he is following the bowel regiment. Also reports leg down his leg, but that is chronic for him. Denies CP and SOB. Allergies Allergy/AdvReac Type Severity Reaction Status Date / Time No Known Allergies Allergy Mild NONE Verified 07/10/23 08:47 Home Medications Medication Instructions Recorded Confirmed Type Ultrabeet 1 dose PO QAM 06/07/23 07/10/23 History ascorbic acid (vitamin C) 500 mg 500 mg PO BID 06/07/23 07/10/23 History tablet (Vitamin C) calcium carbonate 600 mg-vitamin 2 tab PO QAM 06/07/23 07/10/23 History D3 10 mcg (400 unit) tablet (Calcium 600 + D(3)) cyanocobalamin (vitamin B-12) 1,000 mcg subcut MONTHLY 06/07/23 07/10/23 History 1,000 mcg/mL injection kit ferrous sulfate 325 mg (65 mg 325 mg PO BID 06/07/23 07/10/23 History iron) tablet (Iron (ferrous sulfate)) gabapentin 600 mg tablet 1,200 mg PO TID 06/07/23 07/10/23 History morphine 60 mg tablet,extended 60 mg PO Q12H 06/07/23 07/10/23 History release multivitamin 1 tab PO QAM 06/07/23 07/10/23 History olopatadine 0.2 % eye drops 1 drp ophthalmic (eye) DAILY PRN 06/07/23 07/10/23 History Dry Eye(S) omeprazole 20 mg capsule,delayed 20 mg PO BID 06/07/23 07/10/23 History release oxycodone 15 mg tablet 15 mg PO Q4H PRN Pain 06/07/23 07/10/23 History prazosin 2 mg capsule 2 mg PO TID 06/07/23 07/10/23 History temazepam 15 mg capsule 15 mg PO HS 06/07/23 07/10/23 History venlafaxine 37.5 mg tablet 37.5 mg PO QAM 06/07/23 07/10/23 History vitamin B complex 1 tab PO QAM 06/07/23 07/10/23 History Patient History Medical History Chronic back pain GERD (gastroesophageal reflux disease) Depression Hearing deficit History of kidney stones Surgical History History of ERCP History of vasectomy History of lumbar spinal fusion x2 History of carpal tunnel release of both wrists History of repair of left rotator cuff x2 History of repair of right rotator cuff x2 History of fusion of cervical spine "normal ROM" History of cholecystectomy History of gastric bypass History of tooth extraction History of tonsillectomy and adenoidectomy Family History Other Family history not known due to adoption Social History Smoking Status: Never smoker Tobacco Type: Smokeless Tobacco (Dip or Chew) Second Hand Exposure: Yes (work environment); Do You Dip or Chew Tobacco: Yes (chews (advised on policy)); Tobacco Cessation Education Requested by Patient: No Hx Alcohol Use: No 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) Preferred Language: Polish Communication Ability: Effective Sound Effects Person Required: No Beliefs That Will Affect Care: None Current Living Situation: Spouse and Family Current Living Situation Comment: Lives with and daughter and son Other Information That Helps Us Care for You: No Feels Safe at Home: Yes Safety Concerns: Feels Safe At This Time Assistive Devices: Walker Review of Systems Review of Systems: All systems reviewed & are unremarkable except as noted in Subjective Physical Exam Physical Exam: General: WN/WD, NAD, VS as above Resp: normal respiratory effort, lungs clear to auscultation CV: RRR, no murmur, no edema ABD: active bowel sounds Back: abd dressing in place - C/d/i Extremities: Moves all extremities, no edema, erica hose in place Neuro: A&O x3, Skin: intact, no lesions noted Results & Data Results & Data Vital Signs (Past 12 Hours) Vital Signs Temp Pulse Resp BP Pulse Ox O2 Del Method 07/12/23 07:55 36.7 C 58 L 20 99/66 L 95 Room Air Laboratory Results CBC, iron studies, TSH and Vit D reviewed. PG Care Time/CCT Total # of Minutes Spent Total Time Spent with Patient: Total time spent is greater than 50% in coordination of care (as documented) at patient's floor/unit and/or counseling patient: Coding Level of Care Code 03569 IN/OBS CONSULT LVL 2,35M Diagnoses Lumbar stenosis with neurogenic claudication M48.062 Hypertension I10 Fatigue R53.83 Anemia D64.9
[2023-07-12] MEDS: DOCUSATE SODIUM/SENNA 50/8.6MG TAB PO SCH (21:41)
[2023-07-12] MEDS: TEMAZEPAM 15 MG CAPSULE PO SCH (21:41)
[2023-07-13] MEDS: oxyCODONE HCL IR 5 MG TAB (IMMEDIATE RELEASE) PO PRN ×5 (01:43→19:30)
[2023-07-13] MEDS: MoRPHine SULFATE CR 60 MG TABCR PO SCH ×2 (03:43→16:06)
[2023-07-13] MEDS: POLYETHYLENE (MIRALAX) 17 GM PACK PO SCH ×4 (05:58→20:44)
[2023-07-13] MEDS: CALCIUM 600MG + VIT D 400 IU TAB PO SCH (08:02)
[2023-07-13] MEDS: GABAPENTIN 600 MG TAB PO SCH ×3 (08:02→20:40)
[2023-07-13] MEDS: PANTOprazole 40 MG TAB PO SCH ×2 (08:02→20:41)
[2023-07-13] MEDS: VENLAFAXINE HCL 37.5 MG TAB PO SCH (08:03)
[2023-07-13] MEDS: VITAMIN B COMPLEX TAB PO SCH (08:03)
[2023-07-13] MEDS: ASCORBIC ACID 500 MG TAB PO SCH ×2 (08:03→16:07)
--- NOTE | 2023-07-13 08:42 | Orthopedic Progress Note ---
Date of Service July 13, 2023 Assessment & Plan (1) Lumbar stenosis with neurogenic claudication: Plan: Valente is postoperative day 3 status post multilevel lumbar decompression and fusion including hardware removal. He is doing better. Pain is under better control. Will maintain SAMINA drain. Continue with physical therapy and ambulation. DVT prophylaxis is in the form teds and SCDs. Continue with aggressive bowel regimen. Anticipate discharge home tomorrow Admission and Anticipated Discharge Date Admission Date: July 10, 2023 Subjective Valente is postoperative day 3 status post multilevel lumbar decompression and fusion including hardware removal. Yesterday in physical therapy December 250 feet. SAMINA drain output last shift was 70 cc. Pain is under better control today. He had a bowel movement. Review of Systems Review of Systems: All systems reviewed & are unremarkable except as noted in HPI & below Physical Exam Physical Exam: He is in the restroom in no acute distress Alert and oriented x 3 Lumbar dressing is clean dry intact with functioning SAMINA drain Calf soft nontender bilaterally Strength intact bilateral lower extremities Results & Data Vital Signs (Past 12 Hours) Vital Signs Temp Pulse Resp BP Pulse Ox O2 Del Method 07/13/23 07:04 36.7 C 53 L 16 108/64 96 Room Air 07/13/23 03:47 36.5 C 58 L 18 108/69 98 Room Air 07/12/23 22:02 36.7 C 60 18 109/68 96 Room Air Queries Orthopedic Spine Acute Posthemorrhagic Anemia: Yes
[2023-07-13] MEDS: dexAMETHasone 6 MG in SYRINGE 0 ML IV SCH (09:09)
--- NOTE | 2023-07-13 12:16 | Hospitalist Consultation ---
Date of Consultation July 13, 2023 Assessment & Plan (1) Lumbar stenosis with neurogenic claudication: -S/P decompression L1-L3 and L5-2; Fusion T12-S1 with Dr. Guerrero on 07/11 -Pain control, bowel regiment, and DVT proh per surgery -Receiving IV Decadron x 3 days -SAMINA Drain in place -PT/OT (2) Hypertension: -Has been normotensive to hypotensive since admission -Discontinue prazosin, patient aware to follow-up with PCP regarding HTN (3) Fatigue: -Discussed with patient more likely from 1200 gabapentin TID than his prazosin TID. However, does feel improvement after prazosin has been held for 2 days. -Chronic and can be further worked up in the outpatient setting - Vit D and TSH WNL (4) Anemia: -Suspect chronic, worsened by acute blood loss anemia from surgery -Iron studies showing significant iron stores (ferritin 1036), suspect anemia of chronic disease. -Stop iron supplement. Can have further workup with PCP. Patient aware. Plan Dispo: medically stable, discontinue prazosin at discharge. Continued inpatient stay, per patient Dr. Guerrero predicating discharge to home on Saturday Thank you for allowing us to participate in the care of this patient, please re ach out with any questions or concerns Supervising Physician Co-Signing Physician Notes Attending Attestation - Chart reviewed, care plan d/w STEFAN Fontenot. I agree w/ the martinez components of her documentation. Wilmer Camp MD History of Present Illness Attending Physician: Benito Guerrero, DO History of Present Illness Patient seen sitting up in bed. States he did have a small bowel movement this morning, but feels like there is more to come. Thinks that when he does have a bowel movement more pressure will be relieved off his abdomen and back. Reports that he feels like his fatigue has improved. Blood pressures remain soft. Denies lightheadedness or dizziness. Denies chest pain or shortness of breath. Allergies Allergy/AdvReac Type Severity Reaction Status Date / Time No Known Allergies Allergy Mild NONE Verified 07/10/23 08:47 Home Medications Medication Instructions Recorded Confirmed Type Ultrabeet 1 dose PO QAM 06/07/23 07/10/23 History ascorbic acid (vitamin C) 500 mg 500 mg PO BID 06/07/23 07/10/23 History tablet (Vitamin C) calcium carbonate 600 mg-vitamin 2 tab PO QAM 06/07/23 07/10/23 History D3 10 mcg (400 unit) tablet (Calcium 600 + D(3)) cyanocobalamin (vitamin B-12) 1,000 mcg subcut MONTHLY 06/07/23 07/10/23 History 1,000 mcg/mL injection kit ferrous sulfate 325 mg (65 mg 325 mg PO BID 06/07/23 07/10/23 History iron) tablet (Iron (ferrous sulfate)) gabapentin 600 mg tablet 1,200 mg PO TID 06/07/23 07/10/23 History morphine 60 mg tablet,extended 60 mg PO Q12H 06/07/23 07/10/23 History release multivitamin 1 tab PO QAM 06/07/23 07/10/23 History olopatadine 0.2 % eye drops 1 drp ophthalmic (eye) DAILY PRN 06/07/23 07/10/23 History Dry Eye(S) omeprazole 20 mg capsule,delayed 20 mg PO BID 06/07/23 07/10/23 History release oxycodone 15 mg tablet 15 mg PO Q4H PRN Pain 06/07/23 07/10/23 History prazosin 2 mg capsule 2 mg PO TID 06/07/23 07/10/23 History temazepam 15 mg capsule 15 mg PO HS 06/07/23 07/10/23 History venlafaxine 37.5 mg tablet 37.5 mg PO QAM 06/07/23 07/10/23 History vitamin B complex 1 tab PO QAM 06/07/23 07/10/23 History Patient History Medical History Chronic back pain GERD (gastroesophageal reflux disease) Depression Hearing deficit History of kidney stones Surgical History History of ERCP History of vasectomy History of lumbar spinal fusion x2 History of carpal tunnel release of both wrists History of repair of left rotator cuff x2 History of repair of right rotator cuff x2 History of fusion of cervical spine "normal ROM" History of cholecystectomy History of gastric bypass History of tooth extraction History of tonsillectomy and adenoidectomy Family History Other Family history not known due to adoption Social History Smoking Status: Never smoker Tobacco Type: Smokeless Tobacco (Dip or Chew) Second Hand Exposure: Yes (work environment); Do You Dip or Chew Tobacco: Yes (chews (advised on policy)); Tobacco Cessation Education Requested by Patient: No Hx Alcohol Use: No 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) Preferred Language: Bulgarian Communication Ability: Effective Human Factors Ergonomist Required: No Beliefs That Will Affect Care: None Current Living Situation: Spouse and Family Current Living Situation Comment: Lives with and daughter and son Other Information That Helps Us Care for You: No Feels Safe at Home: Yes Safety Concerns: Feels Safe At This Time Assistive Devices: Walker Review of Systems Review of Systems: All systems reviewed & are unremarkable except as noted in Subjective Physical Exam Physical Exam: General: WN/WD, NAD, VS as above Resp: normal respiratory effort, lungs clear to auscultation CV: RRR, no murmur, no edema ABD: active bowel sounds Back: abd dressing in place - C/d/i Extremities: Moves all extremities, no edema, erica hose in place Neuro: A&O x3, Skin: intact, no lesions noted Results & Data Results & Data Vital Signs (Past 12 Hours) Vital Signs Temp Pulse Resp BP Pulse Ox O2 Del Method 07/13/23 07:04 36.7 C 53 L 16 108/64 96 Room Air 07/13/23 03:47 36.5 C 58 L 18 108/69 98 Room Air PG Care Time/CCT Total # of Minutes Spent Total Time Spent with Patient: Total time spent is greater than 50% in coordination of care (as documented) at patient's floor/unit and/or counseling patient: Coding Level of Care Code 89771 IN/OBS CONSULT LVL 2,35M Diagnoses Lumbar stenosis with neurogenic claudication M48.062 Hypertension I10 Fatigue R53.83 Anemia D64.9
[2023-07-13] MEDS: DOCUSATE SODIUM/SENNA 50/8.6MG TAB PO SCH (19:31)
[2023-07-13] MEDS: TEMAZEPAM 15 MG CAPSULE PO SCH (20:41)
[2023-07-14] MEDS: oxyCODONE HCL IR 5 MG TAB (IMMEDIATE RELEASE) PO PRN ×3 (00:22→09:06)
[2023-07-14] MEDS: MoRPHine SULFATE CR 60 MG TABCR PO SCH (03:35)
[2023-07-14] MEDS: POLYETHYLENE (MIRALAX) 17 GM PACK PO SCH (04:03)
[2023-07-14] MEDS: PANTOprazole 40 MG TAB PO SCH (09:07)
[2023-07-14] MEDS: GABAPENTIN 600 MG TAB PO SCH (09:08)
[2023-07-14] MEDS: VITAMIN B COMPLEX TAB PO SCH (09:08)
[2023-07-14] MEDS: ASCORBIC ACID 500 MG TAB PO SCH (09:08)
[2023-07-14] MEDS: VENLAFAXINE HCL 37.5 MG TAB PO SCH (09:08)
[2023-07-14] MEDS: CALCIUM 600MG + VIT D 400 IU TAB PO SCH (09:09)
--- NOTE | 2023-07-14 10:00 | Discharge Summary ---
Date of Service July 14, 2023 Admission HPI Per Admitting Provider This is a 63-year-old male well-known to me the presents with chronic persistent back and leg pain after failing course of nonoperative care is here for surgical invention. Principal Diagnosis Lumbar spinal stenosis with neurogenic claudication Discharge Data Allergies Allergy/AdvReac Type Severity Reaction Status Date / Time No Known Allergies Allergy Mild NONE Verified 07/10/23 08:47 Consultations 07/10/23 15:21 Consult Hospitalist Routine Procedures Performed Operation Date: 07/10/23 10:05 Actual Procedures p Decompression L1-L3 and L5-S1, Fusion T12-S1; Spinal Cord Monitoring - Benito Guerrero DO s L3-L5 Removal Hardware - Benito Guerrero DO Ordered Studies 07/10/23 10:05 FL lumbar spine 2-3V Routine Hospital Course (1) Lumbar stenosis with neurogenic claudication: Patient underwent multilevel lumbar decompression fusion tolerated this well was taken to orthopedic for postoperative. Postoperatively he progressed appropriately. Leg pain improved. X strength testing. SAMINA drain decreasing appropriately. Subsidy discharged home. Discharge orders instructions found in chart for further review. Total Time Total Time Spent Total Time Spent (In Minutes): 20 minutes Discharge Plan Discharge Items Patient Disposition: Home - Home Health Services Reason For Visit: POST OP Discharge Diagnosis: Lumbar spinal stenosis with neurogenic claudication Activity: As commented below Non-emergency contact: Primary Care Provider Call non-emergency contact if: you have any medication questions Follow-up/Referrals: Mango Rahman [Primary Care Provider] - (1 to 2 weeks for hypertension discussion) Diet: Regular Addtl Attending Provider Instructions: ACTIVITY RECOMMENDATIONS: SELF CARE INSTRUCTIONS AFTER THORACIC/LUMBAR FUSIONS 1. You may walk to your tolerance. It is good exercise for your legs and back. Expect some back and intermittent leg aches and pains. 2. You may perform "counter-top" level activities (make a sandwich, steve with a project, etc.). 3. No bending or lifting of more than 10 pounds or back twisting of any nature (roll like a log when turning in bed). 4. You may ride in a car for 20-30 minutes at a time. No driving until after your first visit with your doctor. 5. Frequent changes of position and restricting sitting to 30 minutes at a time will help limit the amount of back spasms and stiffness you may experience. 6. You may discontinue the use of ambulatory aids (cane, crutches, etc.) once your strength and confidence allow. 7. You may cable systems installer the shower and let water strike your incision when you arrive home at least once daily. Do not take a tub bath, sit in a hot tub or go into a swimming pool until after your first recheck in the office. SPECIAL CARE INSTRUCTIONS: VERY IMPORTANT TO READ AND REVIEW A. Your surgical incision has been closed with a cosmetic suture under the skin that will dissolve in about 6 weeks. In 14 days, you can use a pair of clean scissors and cut the suture that is left outside of the skin at th e ends of your incision. 1. The small skin tapes can be removed 7 days after surgery if they have not fallen off by that point. 2. You may keep the wound open to air as much as possible to promote healing after post-op day number 5 unless told otherwise by your doctor. 3. If you think the wound looks like it is becoming infected (redness or worsening drainage) and/or you are experiencing fever, chill or worsening back pain and muscle spasms, contact the office so that we may evaluate you as soon as possible. B. Complications are uncommon, but please contact us if you have any signs or symptoms of: 1. wound infection (fever higher than 102.5 degrees F, redness, separation of wound, drainage, or increasing pain from the incision) 2. blood clots in legs (pain, swelling, redness and warmth in legs) 3. urinary tract infection (fever higher than 102.5 degrees F, burning upon urination or increased frequency of urination) 4. nerve problems (inability to walk on your toes or heels, numbness, loss of bowel or bladder control) 5. any other symptoms that concern you C. Please call the office at if you have any concerns or questions about your operation or recovery. D. No smoking! Smoking drastically decreases the chance of a solid fusion. E. Do not take any anti-inflammatory medications (Indocin, Advil, Motrin, Aspirin, Naprosyn, etc.) as these may inhibit the chance of a solid fusion. Tylenol is okay to take for pain. MANAGING PAIN AFTER SPINAL SURGERY 1. Narcotic medication is intended for short-term use and will be provided for surgical pain. Surgical pain usually lasts for a period of 4-6 weeks. Narcotic medication includes Percocet, Vicodin, Darvocet, Tylenol #3 or Lortab. 2. Longer-term pain is more appropriately treated with non-narcotic medication such as Tylenol ES. 3. Muscle spasm is not appropriately treated with narcotics. Muscle relaxers such as Soma, Flexeril or Skelaxin can be used along with Tylenol ES. 4. Remember that we all live with some "aches and pains". This is not unusual or uncommon after an injury or as we get older. a. Back pain is expected and may include muscle spasms for 4 to 6 weeks after surgery. The pain should gradually improve. If the pain worsens for no apparent reason, please contact the office. b. Intermittent leg pain may also be experienced and should not be concerned about unless it worsens for no apparent reason. If so, please contact the office. 5. We will provide appropriate medication within the normal guidelines of their prescribed use. We will also be very cautious and aware of potential abuse and extended duration of patients' medication needs. a. Pain medications are for your comfort and to assist with sleep and rest so that the tissue can heal. They are not provided in order to return to normal activity and should not be used through the day. To do so or worsening pain at night can result from ongoing tissue damage and development of tolerance to the prescribed medicine. 6. Please allow 2-3 days to process refills. Prescriptions will not be mailed but must be picked up at the office. FOLLOW UP VISIT: Keep your scheduled follow-up appointment. Any questions, please call the office at . Addtl Accounting Supervisor Provider Instructions: During your hospital stay, your prazosin was discontinued because your blood pressures were normal to low. You also felt like your fatigue has improved since we stopped this. As we discussed, your fatigue may also be related to your high-dose gabapentin. We did check a vitamin D and thyroid level during your stay which were normal. You should follow-up with your PCP to decide if you need a new medication for hypertension in the future. They can also do a further workup on your fatigue if it continues to persist. We also checked iron studies while you are inpatient. They show that you had a large amount of iron stores in your blood, for this reason your iron supplement was stopped. And your anemia is likely more related to chronic disease/inflammation. You can further discuss this with your PCP for long-term management. Pending Studies at Discharge: No Stand-Alone Forms: My [facility] [place], Smoking Cessation Medications and DC Order Prescriptions: Continued gabapentin 600 mg Tablet 1,200 mg PO TID prazosin 2 mg Capsule 2 mg PO TID ascorbic acid (vitamin C) [Vitamin C] 500 mg Tablet 500 mg PO BID ferrous sulfate [Iron (ferrous sulfate)] 325 mg (65 mg iron) Tablet 325 mg PO BID omeprazole 20 mg Capsule,Delayed Release(Dr/Ec) 20 mg PO BID vitamin B complex Tablet 1 tab PO QAM multivitamin Tablet 1 tab PO QAM oxycodone 15 mg Tablet 15 mg PO Q4H PRN (Reason: Pain) temazepam 15 mg Capsule 15 mg PO HS morphine 60 mg Tablet Extended Release 60 mg PO Q12H venlafaxine 37.5 mg Tablet 37.5 mg PO QAM calcium carbonate-vitamin D3 [Calcium 600 + D(3)] 600 mg-10 mcg (400 unit) Tablet 2 tab PO QAM olopatadine 0.2 % Drops 1 drp OPHTHALMIC (EYE) DAILY PRN (Reason: Dry Eye(S)) cyanocobalamin (vitamin B-12) 1,000 mcg/mL Kit 1,000 mcg SUBCUT MONTHLY Patient Comments: takes on the of the month Ultrabeet 1 dose PO QAM Discharge Orders: Discharge Order (Routine); Ordered 07/14/23 Ordered By: Benito Guerrero Admission Data Admit Date/Time: 07/10/23 14:12 Attending Provider: Benito Guerrero Admit Provider: Elsa Chirinos Primary Care Provider: Mango Rahman Other Providers: Wilmer Camp Amrit
== END 2023-07-14 10:48 | disposition home health service (06) | DRG 454 ==
LOC: ASU 08:04 → SUATTDRO 14:12 → 3E 14:12
DX: M48.062 Spinal stenosis, lumbar region with neurogenic claudication; D62 Acute posthemorrhagic anemia; Z79.899 Other long term (current) drug therapy; F32.A Depression, unspecified; I10 Essential (primary) hypertension; K21.9 Gastro-esophageal reflux disease without esophagitis; F17.220 Nicotine dependence, chewing tobacco, uncomplicated